=== PATIENT | male | born 1975 | race African-American/Black ===

== ENCOUNTER 2022-04-24 18:13 | Emergency (ER) | payer OTHER ==
[~2022-04-24] VITALS: Ht 177.8 cm; Wt 93.9 kg
--- NOTE | 2022-04-24 18:15 | NUR ---
C/O L SIDED CHEST PAIN 1 HOUR AGO, WHILE ON INTER[employer] WORKING, ADMITS TO SMOKING "MARIJUANA". PT DENIES ANY CHEST PAIN AT THE TIME. ATTACHED TO MONITOR, BLOOD PRESSURE ELEVATED, NO RESP DISTRESS NOTED ON ROOM AIR. DR GOLDSTEIN AT BEDSIDE.
--- NOTE | 2022-04-24 18:20 | NUR ---
IV ESTABLISHED R AC 18G. ADDITIONAL IV ESTABLIHSED L AC. LABS DRAWN AND COLLECTED AT BEDSIDE.
[2022-04-24] MEDS ORDERED: ASPIRIN 325 MG TABLET PO ONE (18:30)
[2022-04-24] MEDS ORDERED: NITROGLYCERIN PACKET 1 GM PACKET TD ONE (18:30)
[2022-04-24] MEDS ORDERED: HEPARIN SODIUM, PORCINE 5000 UNITS/1 ML VIAL IV ONE (18:30)
[2022-04-24] MEDS ORDERED: NITROGLYCERIN PACKET 1 GM PACKET ONE (18:35)
[2022-04-24] MEDS ORDERED: ASPIRIN EC 325 MG TABLET.DR PO ONE (18:35)
[2022-04-24] MEDS ORDERED: HEPARIN SODIUM, PORCINE 5000 UNITS/1 ML VIAL ONE (18:35)
[2022-04-24 18:55] LABS: CALCIUM, SERUM 8.8 mg/dL (8.5-10.1); CARBON DIOXIDE 30 mmol/L (21-32); CHLORIDE 101 mmol/L (98-107); CREATININE 1.4 mg/dL (0.6-1.3); GLUCOSE 89 mg/dL (74-106); POTASSIUM 3.2 mmol/L (3.5-5.1); SODIUM SERUM 139 mmol/L (136-145); UREA NITROGEN, BLOOD 15 mg/dL (7-18)
--- NOTE | 2022-04-24 18:57 | NUR ---
COVID TEST COLLECTED AND SENT
[2022-04-24] MEDS ORDERED: ALPR1TAB2 PO (19:00)
[2022-04-24 19:01] LABS: ALANINE AMINOTRANSFERASE 22 U/L (12-78); ALBUMIN 3.8 g/dL (3.4-5.0); ALKALINE PHOSPHATASE 90 U/L (46-116); ASPARTATE AMINOTRANSFERASE 19 U/L (15-37); BILIRUBIN,DIRECT 0.1 mg/dL (0.0-0.2); BILIRUBIN,TOTAL 0.4 mg/dL (0.2-1.0); TOTAL PROTEIN, SERUM 7.9 g/dL (6.4-8.2)
[2022-04-24 19:40] LABS: BASOPHILS % (AUTO) 0.4 % (0.0-2.0); EOSINOPHILS % (AUTO) 1.4 % (0.0-6.0); HEMATOCRIT 41 % (39-51); HEMOGLOBIN 13.7 g/dL (13.5-17.5); LYMPHOCYTES # (AUTO) 2.5 K/uL (0.8-4.8); LYMPHOCYTES % (AUTO) 36.4 % (20.0-44.0); MEAN CORPUSCULAR HGB CONC 34 g/dl (31.0-36.0); MEAN CORPUSCULAR VOLUME 90 fL (80-96); MONOCYTES % (AUTO) 13.9 % (2.0-12.0); NEUTROPHILS # (AUTO) 3.3 K/uL (1.8-8.9); NEUTROPHILS % (AUTO) 47.9 % (43.0-81.0); PLATELET COUNT (AUTO) 285 K/uL (150-450); RED BLOOD CELL COUNT(AUTO) 4.54 MIL/uL (4.5-6.0); WHITE BLOOD COUNT (AUTO) 6.9 K/uL (4.3-11.0)
[2022-04-24] MEDS ORDERED: ACETAMINOPHEN ES 500 MG TABLET ONE (20:09)
[2022-04-24] MEDS ORDERED: ACETAMINOPHEN ES 500 MG TABLET PO ONE (20:30)
--- NOTE | 2022-04-24 21:00 | NUR ---
Patient discharged to home in stable condition. Written and verbal after care instructions given. Patient verbalizes understanding of instruction.
[2022-04-24 21:01] VITALS: BP 145/80
== END 2022-04-24 21:06 | disposition home or self-care (01) ==
LOC: ER 18:15
DX: R07.9 Chest pain, unspecified (principal); I34.0 Nonrheumatic mitral (valve) insufficiency; Z20.822 Contact with and (suspected) exposure to COVID-19; R94.31 Abnormal electrocardiogram [ECG] [EKG]
CPT/HCPCS: 99285; 93307; 96374; 71045; 87426; 93005 ×2; 85025; 80048; 80076; 36415; 84484 ×2; 87081; J1644; C9803

== ENCOUNTER 2023-05-13 09:31 | Emergency (ER) | payer OTHER ==
[~2023-05-13] VITALS: Ht 177.8 cm; Wt 86.2 kg
[~2023-05-13 09:31] MED LIST: ALPR1TAB2 PO
[2023-05-13 09:58] LABS: BASOPHILS % (AUTO) 0.6 % (0.0-2.0); EOSINOPHILS # (AUTO) 0.1 K/uL (0.0-0.7); EOSINOPHILS % (AUTO) 1.2 % (0.0-6.0); HEMATOCRIT 37 % (39-51); HEMOGLOBIN 12.2 g/dL (13.5-17.5); LYMPHOCYTES % (AUTO) 24.7 % (20.0-44.0); MEAN CORPUSCULAR HEMOGLOBIN 29 PG (26.0-33.0); MEAN CORPUSCULAR HGB CONC 33 g/dl (31.0-36.0); MEAN CORPUSCULAR VOLUME 88 fL (80-96); MONOCYTES # (AUTO) 0.4 K/uL (0.1-1.30); MONOCYTES % (AUTO) 10.3 % (2.0-12.0); NEUTROPHILS # (AUTO) 2.7 K/uL (1.8-8.9); NEUTROPHILS % (AUTO) 63.2 % (43.0-81.0); PLATELET COUNT (AUTO) 250 K/uL (150-450); RED BLOOD CELL COUNT(AUTO) 4.23 MIL/uL (4.5-6.0); RED CELL DISTRIBUTION WIDTH 15.5 % (11.5-15.0); WHITE BLOOD COUNT (AUTO) 4.2 K/uL (4.3-11.0)
[2023-05-13 10:12] LABS: CALCIUM, SERUM 8.9 mg/dL (8.5-10.1); CARBON DIOXIDE 32 mmol/L (21-32); CHLORIDE 107 mmol/L (98-107); CREATININE 1.1 mg/dL (0.6-1.3); GLUCOSE 113 mg/dL (74-106); POTASSIUM 4.3 mmol/L (3.5-5.1); SODIUM SERUM 141 mmol/L (136-145); UREA NITROGEN, BLOOD 14 mg/dL (7-18)
[2023-05-13] MEDS ORDERED: IBUP-1955 PO (10:19)
[2023-05-13 10:24] LABS: NT-PRO BNP 90 pg/mL (0-125)
[2023-05-13 10:54] VITALS: BP 125/78; TEMP 98; O2SAT 97
== END 2023-05-13 10:55 | disposition home or self-care (01) ==
LOC: ER 09:38
DX: R07.89 Other chest pain (principal); Z79.899 Other long term (current) drug therapy; Z60.2 Problems related to living alone
CPT/HCPCS: 36415; 71045-TC; 80048-TC; 83880; 84484-TC; 85025-TC